=== PATIENT | female | born 1955 | race African-American/Black ===

== ENCOUNTER 2019-10-30 16:50 | Emergency (ER) | payer OTHER, SELFPAY ==
[2019-10-30 17:10] VITALS: BP 174/104; PULSE 94; RESP 16; TEMP 36.7; O2SAT 99
--- NOTE | 2019-10-30 17:38 | ED.SKABFB ---
HPI - Skin/Abscess/Foreign Bdy General Chief complaint: Skin/Abscess/Foreign Body Stated complaint: rash Time Seen by Provider: 10/30/19 17:38 Source: patient Mode of arrival: ambulatory Limitations: other (bilateral knee replacements on September 28) History of Present Illness HPI narrative: 64 year old female who presents to [facility] care with complaints of 3 week duration of rash to perineal area and buttocks. Patient just recently on 09/29/19 had bilateral knee replacements and is recuperating from surgery. Patient states that rash is itchy and also irritating with some blood noted from rash. patient states that she has tried A& D ointment and has applied Desitin ointment with no improvement. Rash noted to be red and excoriated in areas on buttock with some peeling of skin noted in perineal area and is itchy. Patient denies any recent fevers chills or sweats. She is taking pain medication for post operative pain management, denies any recent diarrhea or any pain or burning with urination. MD complaint: rash Onset (ago): week(s) (3) Location: buttocks (perineal area) Severity: moderate Severity scale (1-10): 4 Quality: pruritic Pain Consistency: constant Relieving factors: none Exacerbating factors: movement Context: recent antibiotic and other (recent surgery) Treatments prior to arrival: other (Desitin and A&D ointment) Related Data Home Medications Medication Instructions Recorded Confirmed apixaban [Eliquis] 2.5 mg PO BID 10/30/19 10/30/19 ascorbic acid (vitamin C) 500 mg PO BID 10/30/19 10/30/19 atorvastatin [Lipitor] 80 mg PO DAILY 10/30/19 10/30/19 calcium carbonate-vitamin D3 1 cap PO DAILY 10/30/19 10/30/19 celecoxib [Celebrex] 400 mg PO DAILY 10/30/19 10/30/19 ferrous sulfate 1 mg PO DAILY 10/30/19 10/30/19 hydrochlorothiazide 25 mg PO DAILY 10/30/19 10/30/19 insulin glargine [Basaglar KwikPen 45 unit SUBCUT DAILY 10/30/19 10/30/19 U-100 Insulin] lisinopril [Zestril] 40 mg PO DAILY 10/30/19 10/30/19 metformin [Glucophage] 2,000 mg PO DAILY 10/30/19 10/30/19 minocycline 100 mg PO DAILY 10/30/19 10/30/19 oxycodone-acetaminophen 1 - 2 tablet PO Q4-6H 10/30/19 10/30/19 Allergies Allergy/AdvReac Type Severity Reaction Status Date / Time No Known Allergies Allergy Verified 10/30/19 17:24 Review of Systems Review of Systems: Narrative: CONSTITUTIONAL: Denies fever, chills, or sweats. EYES: Denies visual changes, redness, or discharge. ENT: Denies rhinorrhea, congestion, sore throat, or otalgia. CARDIOVASCULAR: Denies chest pain, palpitations, or edema. RESPIRATORY: Denies cough or dyspnea. GASTROINTESTINAL: Denies abdominal pain, nausea, vomiting, or diarrhea. GENITOURINARY: Denies dysuria or hematuria. SKIN: positive for rash and itching to buttock and perineal area MUSCULOSKELETAL: Denies back pain, positive bilateral knee pain from recent bilateral total knee surgery or myalgia. NEUROLOGIC: Denies headache, numbness, or weakness. PSYCHIATRIC: Denies anxiety or depression. All systems reviewed & are unremarkable except as noted in HPI and below PMFSH Past Medical History Medical History Arthritis Diabetes Falls Fibromyalgia HTN (hypertension) Syncope Surgical History Surgical History History of hysterectomy History of knee replacement, total bilateral Hx of hand surgery right Social History Social History (Updated 11/03/19 @ 09:14 by Renee Conley NP) Smoking status: Never smoker Second hand tobacco smoke exposure: No Substance use: never Living arrangements: with family Gender identity (if verbalized by the patient): Female Comments At time of signature, agree with nursing past medical, surgical, social history. There is no relevant family history pertinent to the presenting complaint Exam Narrative: Exam Narrative: GENERAL: Well-appearing, well-nourished, and in no a
[2019-10-30 17:58] VITALS: BP 119/84; PULSE 99
== END 2019-10-30 17:58 | disposition home or self-care (01) ==
PROVIDERS: Emergency Provider Registered Nurse; PCP Physician Assistant
DX: R21 Rash and other nonspecific skin eruption (principal); B37.2 Candidiasis of skin and nail; M19.90 Unspecified osteoarthritis, unspecified site; E11.9 Type 2 diabetes mellitus without complications; M79.7 Fibromyalgia; I10 Essential (primary) hypertension; Z96.653 Presence of artificial knee joint, bilateral
CPT/HCPCS: 99213; G0463

== ENCOUNTER 2020-03-21 21:35 | Emergency (ER) | payer OTHER, SELFPAY ==
--- NOTE | ~2020-03-21 | CT_ITS ---
EXAMINATION: CT abdomen pelvis w con DATE: 03/21/2020 23:02 INDICATION: Right lower quadrant abdominal pain TECHNIQUE: Computed tomography (CT) of the abdomen and pelvis was performed with 100 cc Omnipaque 350 intravenous contrast. Automated exposure control and iterative reconstruction technique were employe d. Exam dose: 925.13 mGy-cm total exam DLP. COMPARISON: None. FINDINGS: There is discoid atelectasis and/or scarring in the lower lung zones. Normal heart size. No pericardial or pleural effusion. The liver, gallbladder, bile ducts and spleen are unremarkable. There are multiple pancreatic calcifications including a couple at the pancreatic neck, measuring up to 2.2 x 6.2 mm approximate maximal dimension. Several small punctate calcifications of the pancreati c body are suggested. Another small calcification is noted near the junction of the pancreatic head a nd uncinate process. Findings suggest chronic pancreatitis. 1.4 cm left adrenal low-attenuation mass, likely a small left adrenal adenoma. No right adrenal mass lesion is evident. No renal mass lesion or urinary tract calculus or hydroureteronephrosis is evident. The urinary bladd er is evacuated and not optimally evaluated as a result. Status post hysterectomy. Normal caliber and calcification of the abdominal aorta and iliac arteries. No intraperitoneal or ret roperitoneal or pelvic mass lesion or adenopathy or ascites is evident. Normal appendix. Diverticulosis of sigmoid colon; no CT evidence of diverticulitis. No bowel obstruction, bowel wall t hickening, pneumatosis or intraperitoneal free air. Very small fat-containing umbilical hernia. There is moderately severe degenerative disc disease at L3-4. There is grade 1 anterolisthesis at L4-5 due to degenerative change at the facet joints. Degenerative spurring of the lower thoracic spine. No suspicious osteolytic or osteoblastic lesions are noted. IMPRESSION: Calcifications consistent with chronic pancreatitis Probable 1.4 cm left adrenal adenoma Status post hysterectomy Normal appendix Diverticulosis of the sigmoid colon; no CT evidence of diverticulitis Reviewed, dictated and finalized at [facility]. Reviewed, dictated and finalized at [facility]. NOPATHOLOGIST
[2020-03-21 21:46] VITALS: BP 140/88; PULSE 102; RESP 18; TEMP 37; O2SAT 100
[2020-03-21 21:59] LABS: Basophils Absolute Auto 0.1 K/mm3 (0.0-0.1); Basophils Percent Auto 0.8 % (0.2-1.2); Eosinophils Absolute Auto 0.1 K/mm3 (0-0.3); Eosinophils Percent Auto 1.2 % (0-4.4); Hematocrit 44.3 % (37.0-47.0); Hemoglobin 14.8 g/dL (12.0-15.0); Immature Granulocyte Absolute 0.03 K/mm3 (0.00-0.031); Immature Granulocyte Percent A 0.3 % (0-0.5); Lymphocytes Absolute Auto 4.19 K/mm3 (0.9-3.2); Lymphocytes Percent Auto 47.3 % (18.3-44.2); Mean Corpuscular HGB Conc 33.4 g/dl (32-36); Mean Corpuscular Hemoglobin 32.5 pg (26-34); Mean Corpuscular Volume 97.4 fl (80-100); Mean Platelet Volume 8.4 fl (7.4-10.4); Monocytes Absolute Auto 0.7 K/mm3 (0.1-0.6); Monocytes Percent Auto 7.9 % (2.6-8.5); Neutrophils Absolute Auto 3.8 K/mm3 (1.3-6.7); Neutrophils Percent Auto 42.5 % (45.5-73.1); Platelet Count Result 419 k/mm3 (150-375); Red Blood Count 4.55 M/mm3 (4.2-5.4); Red Cell Distribution Width 14.8 % (11.5-14.5); White Blood Count 8.9 K/mm3 (4.5-10.0)
[2020-03-21 22:08] LABS: Alanine Aminotransferase 31 U/L (4-35); Albumin Level 4.6 g/dL (3.5-5.1); Alkaline Phosphatase 85 U/L (38-126); Anion Gap 13 mmol/L (8-16); Aspartate Amino Transferase 35 U/L (14-36); Bilirubin,Total 0.9 mg/dL (0.2-1.3); Blood Urea Nitrogen 17 mg/dL (7-17); Calcium 10.2 mg/dL (8.4-10.2); Carbon Dioxide 23 mmol/L (22-30); Chloride 103 mmol/L (98-107); Estimated Glomerular Filt Rate > 60; Glucose 163 mg/dL (65-105); Lipase 75 U/L (23-300); Sodium 139 mmol/L (137-145)
--- NOTE | 2020-03-21 22:26 | ED.GENADULT ---
HPI - General Adult General Chief complaint: Urogenital-Female Stated complaint: RL abd/lower back pain Time Seen by Provider: 03/21/20 22:09 History of Present Illness HPI narrative: Patient 64-year-old female who presents the emergency department with chief complaint of right lower quadrant pain. The patient states that she has been having pain for the last 4 days and has thought that she had a urinary tract infection. The patient has been attempting to self medicate with hydration Azo and cranberry. The patient states that she started having pain in the right flank and right lower quadrant and today the pain did not get any better and stated was worse with movement and palpation. Patient went to urgent care and they recommended the patient come to the emergency department to evaluate for possible kidney stone. Related Data Home Medications Medication Instructions Recorded Confirmed apixaban [Eliquis] 2.5 mg PO BID 10/30/19 10/30/19 ascorbic acid (vitamin C) 500 mg PO BID 10/30/19 10/30/19 atorvastatin [Lipitor] 80 mg PO DAILY 10/30/19 10/30/19 calcium carbonate-vitamin D3 1 cap PO DAILY 10/30/19 10/30/19 celecoxib [Celebrex] 400 mg PO DAILY 10/30/19 10/30/19 ferrous sulfate 1 mg PO DAILY 10/30/19 10/30/19 hydrochlorothiazide 25 mg PO DAILY 10/30/19 10/30/19 insulin glargine [Basaglar KwikPen 45 unit SUBCUT DAILY 10/30/19 10/30/19 U-100 Insulin] lisinopril [Zestril] 40 mg PO DAILY 10/30/19 10/30/19 metformin [Glucophage] 2,000 mg PO DAILY 10/30/19 10/30/19 minocycline 100 mg PO DAILY 10/30/19 10/30/19 oxycodone-acetaminophen 1 - 2 tablet PO Q4-6H 10/30/19 10/30/19 Allergies Allergy/AdvReac Type Severity Reaction Status Date / Time No Known Allergies Allergy Verified 03/21/20 21:36 Review of Systems Review of Systems: Narrative: A 10 system review of systems was completed on the patient and is negative except for what is stated in the HPI. Nursing and ancillary documentation was reviewed. [facility] Past Medical History Medical History (Updated 03/22/20 @ 00:24 by Zana Flores MD) Arthritis Diabetes Falls Fibromyalgia HTN (hypertension) Syncope Surgical History Surgical History History of hysterectomy History of knee replacement, total bilateral Hx of hand surgery right Social History Social History Smoking status: Never smoker Second hand tobacco smoke exposure: No Substance use: never Gender identity (if verbalized by the patient): Female Exam Narrative: Exam Narrative: GENERAL: Well-appearing, well-nourished, and in no acute distress. HEAD: Normocephalic, atraumatic. EYES: PERRLA and EOMI. ENT: Nares clear, no rhinorrhea or epistaxis. Mucous membranes moist. NECK: Supple. CHEST: Clear to auscultation. No respiratory distress. HEART: Regular rate and rhythm. No murmur heard. Normal peripheral pulses. ABDOMEN: Soft, tender to palpation in the right lower quadrant, nondistended, normal active bowel sounds. EXTREMITIES: Normal range of motion. No edema. SKIN: Warm, dry, no rash. NEURO: No focal deficits. Alert and oriented x3. PSYCH: Normal mood and affect. Course Course Emergency Course: CT scan shows evidence of chronic pancreatitis and diverticulosis without diverticulitis the appendix was visualized and was normal there is no evidence of hydronephrosis or evidence of obstructing ureteral lithiasis. Laboratory studies are within normal limits lipase was normal urinalysis showed no evidence of UTI. Vital Signs Vital signs: Vital Signs Temperature 37.0 C 03/21/20 21:46 Pulse Rate 102 H 03/21/20 21:46 Respiratory Rate 18 03/21/20 21:46 Blood Pressure 140/88 03/21/20 21:46 Pulse Oximetry 100 03/21/20 21:46 Temperature 37.0 C 03/21/20 21:46 Pulse Rate 102 H 03/21/20 21:46 Respiratory Rate 18 03/21/20 21:46 Blood Pressu
[2020-03-21 22:30] VITALS: BP 137/87; PULSE 88; RESP 20; O2SAT 99
[2020-03-21] MEDS: MORPHINE SULFATE (*CRX) 4 MG/ML INJ IV PUSH (22:39)
[2020-03-21] MEDS: ONDANSETRON INJ 4 MG/2 ML VIAL IV PUSH (22:39)
[2020-03-21] MEDS: SODIUM CHLORIDE 0.9% IV 1,000 ML 999 ML IV CONT (22:39)
[2020-03-21] MEDS: HYDROmorphone HCL INJ (*CRX) 1 MG/ML SYR IV PUSH (23:31)
[2020-03-21 23:37] LABS: Add Urine Microscopic? YES; Appearance Urine Clear (Clear); Bacteria Urine Trace /hpf; Bilirubin Urine Negative (Negative); Blood Urine Negative (Negative); Calcium Oxalate Crystals Urine Many /hpf; Color Urine Yellow (Yellow); Glucose Urine UA Negative (Negative); Ketones Urine Trace mg/dL (Negative); Leukocyte Esterase Ur Negative LEU/UL (Negative); Mucus Urine Few /lpf; Nitrate Urine Negative (Negative); Protein Urine 1+ mg/dL (Negative); RBC Urine 0-2 /hpf (0-2); Squamous Epithelial Cell Urine Few /hpf (Few); WBC Urine 0-3 /hpf
[2020-03-21 23:38] LABS: Specific Grav Ur 1.035 (1.001-1.035)
[2020-03-22 00:35] VITALS: BP 131/82; PULSE 90; RESP 17; O2SAT 98
== END 2020-03-22 00:35 | disposition home or self-care (01) ==
PROVIDERS: Emergency Provider Emergency Medicine; PCP Physician Assistant
DX: R10.31 Right lower quadrant pain (principal); M19.90 Unspecified osteoarthritis, unspecified site; E11.9 Type 2 diabetes mellitus without complications; M79.7 Fibromyalgia; I10 Essential (primary) hypertension; Z96.653 Presence of artificial knee joint, bilateral; Z79.4 Long term (current) use of insulin; Z79.01 Long term (current) use of anticoagulants; K57.30 Diverticulosis of large intestine without perforation or abscess without bleeding; R93.5 Abnormal findings on diagnostic imaging of other abdominal regions, including retroperitoneum
CPT/HCPCS: 36415; 74177; 80053; 81001; 83690; 85025; 96361; 96374; 96375; 99284; J1170; J2270; J2405; J7030; Q9967

== ENCOUNTER 2020-04-13 13:35 | Outpatient (CLI) | payer OTHER, SELFPAY ==
--- NOTE | ~2020-04-13 | US_ITS ---
EXAMINATION: US right upper quadrant DATE: 04/13/2020 14:18 INDICATION: Right upper quadrant pain TECHNIQUE: Multiple grayscale and Doppler ultrasound images of the abdomen were obtained. COMPARISON: CT, 03/21/2020 FINDINGS: The head and body of the pancreas are normal. The pancreatic tail is obscured by bowel gas. The liver is normal with normal echogenicity and echotexture. No surface nodularity. Normal hepatope srinivasan flow in the main portal vein. The gallbladder is normal with no abnormal wall thickening, pericho lecystic fluid or stones. The normal common bile duct measures 5 mm. Sonographic Herrera sign is posit tressa. IMPRESSION: 1. Normal sonographic study of the gallbladder. Reviewed, dictated and finalized at location [facility]. RNATIONAL MARKETING COORDINATOR
== END 2020-04-13 13:36 | disposition home or self-care (01) ==
LOC: ANHIMG 13:38
PROVIDERS: PCP Physician Assistant; Visit Provider Physician Assistant
DX: R10.11 Right upper quadrant pain (principal)
CPT/HCPCS: 76705

== ENCOUNTER 2020-04-27 18:33 | Emergency (ER) | payer OTHER, SELFPAY ==
--- NOTE | ~2020-04-27 | CT_ITS ---
EXAMINATION: CT abdomen pelvis w con INDICATION: Right lower quadrant pain TECHNIQUE: Computed tomographic images of the abdomen and pelvis were obtained after the administrati on of 100 cc of Omnipaque 350 intravenous contrast. The dose-length product (DLP) was 1238.34 mGy-cm. Automated exposure control and iterative reconstruction technique were employed. COMPARISON: 03/21/2020 FINDINGS: The lung bases are clear. The heart size is normal. Calcified coronary artery atheroscleros is is noted. The liver, spleen, pancreas, gallbladder, and right adrenal gland are normal. There is a stable 1.3 cm mass of the left adrenal gland. The kidneys are unremarkable. No pathologically enlarg ed abdominal or pelvic lymph nodes are identified. There is calcified atherosclerosis of the aorta an d many of the other arteries. There is no free intraperitoneal gas or evidence of bowel obstruction. A large volume of colonic stool is present. The appendix is normal. IMPRESSION: 1. Constipation. 2. 1.3 cm left adrenal mass, likely adenoma. Consider follow-up adrenal protocol CT in 12 months. Reviewed, dictated and finalized at location [facility]. NT RELATIONSHIP CONSULTANT IMPRESSION: 1. Constipation. 2. 1.3 cm left adrenal mass, likely adenoma. Consider follow-up adrenal protoco l CT in 12 months.
[2020-04-27 19:34] VITALS: BP 133/73; PULSE 96; RESP 16; TEMP 36.5; O2SAT 99
[2020-04-27 19:49] LABS: Basophils Absolute Auto 0.1 K/mm3 (0.0-0.1); Eosinophils Absolute Auto 0.2 K/mm3 (0-0.3); Eosinophils Percent Auto 3.2 % (0-4.4); Hematocrit 41.9 % (37.0-47.0); Hemoglobin 14.2 g/dL (12.0-15.0); Immature Granulocyte Absolute 0.01 K/mm3 (0.00-0.031); Immature Granulocyte Percent A 0.1 % (0-0.5); Lymphocytes Absolute Auto 3.74 K/mm3 (0.9-3.2); Lymphocytes Percent Auto 52.2 % (18.3-44.2); Mean Corpuscular HGB Conc 33.9 g/dl (32-36); Mean Corpuscular Hemoglobin 32.7 pg (26-34); Mean Corpuscular Volume 96.5 fl (80-100); Mean Platelet Volume 8.4 fl (7.4-10.4); Monocytes Absolute Auto 0.5 K/mm3 (0.1-0.6); Monocytes Percent Auto 7.3 % (2.6-8.5); Neutrophils Absolute Auto 2.6 K/mm3 (1.3-6.7); Neutrophils Percent Auto 36.2 % (45.5-73.1); Platelet Count Result 379 k/mm3 (150-375); Red Blood Count 4.34 M/mm3 (4.2-5.4); Red Cell Distribution Width 12.7 % (11.5-14.5); White Blood Count 7.2 K/mm3 (4.5-10.0)
[2020-04-27 20:02] LABS: Alanine Aminotransferase 26 U/L (4-35); Albumin Level 4.5 g/dL (3.5-5.1); Alkaline Phosphatase 87 U/L (38-126); Anion Gap 7 mmol/L (8-16); Aspartate Amino Transferase 33 U/L (14-36); Bilirubin,Total 0.4 mg/dL (0.2-1.3); Blood Urea Nitrogen 16 mg/dL (7-17); Calcium 9.8 mg/dL (8.4-10.2); Carbon Dioxide 25 mmol/L (22-30); Chloride 108 mmol/L (98-107); Estimated Glomerular Filt Rate > 60; Glucose 155 mg/dL (65-105); Lipase 79 U/L (23-300); Potassium 3.8 mmol/L (3.4-5.0); Sodium 140 mmol/L (137-145)
[2020-04-27 21:14] LABS: Add Urine Microscopic? YES; Appearance Urine Clear (Clear); Bacteria Urine Trace /hpf; Bilirubin Urine Negative (Negative); Blood Urine Negative (Negative); Calcium Oxalate Crystals Urine Many /hpf; Color Urine Yellow (Yellow); Glucose Urine UA Negative (Negative); Ketones Urine Negative (Negative); Leukocyte Esterase Ur Negative LEU/UL (Negative); Mucus Urine Rare /lpf; Nitrate Urine Negative (Negative); Protein Urine Negative (Negative); RBC Urine 0-2 /hpf (0-2); Squamous Epithelial Cell Urine Moderate /hpf (Few); WBC Urine 0-3 /hpf
[2020-04-27 22:49] VITALS: BP 135/84; PULSE 88; RESP 14; O2SAT 98
--- NOTE | 2020-04-27 22:57 | ED.GENADULT ---
HPI - General Adult General Chief complaint: Abdominal Pain Stated complaint: right flank pain Time Seen by Provider: 04/27/20 22:16 History of Present Illness HPI narrative: Patient is a 64-year-old female who presents ER with lower abdominal pain. Right side. Radiates from her navel to her back. Associated with malodorous vaginal discharge that began over the last 2 days. Was seen a month ago without the abnormal discharge and CT scan was unremarkable. No urinary symptoms. Last sexual activity was in December 2019. No alleviating factors. Pain worse with movement and with palpation. It also increases in intensity sporadically. Related Data Home Medications Medication Instructions Recorded Confirmed apixaban [Eliquis] 2.5 mg PO BID 10/30/19 10/30/19 ascorbic acid (vitamin C) 500 mg PO BID 10/30/19 10/30/19 atorvastatin [Lipitor] 80 mg PO DAILY 10/30/19 10/30/19 calcium carbonate-vitamin D3 1 cap PO DAILY 10/30/19 10/30/19 celecoxib [Celebrex] 400 mg PO DAILY 10/30/19 10/30/19 ferrous sulfate 1 mg PO DAILY 10/30/19 10/30/19 hydrochlorothiazide 25 mg PO DAILY 10/30/19 10/30/19 insulin glargine [Basaglar KwikPen 45 unit SUBCUT DAILY 10/30/19 10/30/19 U-100 Insulin] lisinopril [Zestril] 40 mg PO DAILY 10/30/19 10/30/19 metformin [Glucophage] 2,000 mg PO DAILY 10/30/19 10/30/19 minocycline 100 mg PO DAILY 10/30/19 10/30/19 oxycodone-acetaminophen 1 - 2 tablet PO Q4-6H 10/30/19 10/30/19 Allergies Allergy/AdvReac Type Severity Reaction Status Date / Time No Known Allergies Allergy Verified 04/27/20 22:52 Review of Systems Review of Systems: All systems reviewed & are unremarkable except as noted in HPI and below Constitutional: Constitutional: Denies chills, Denies fever(s) and Denies weakness Gastrointestinal: Gastrointestinal: Reports abdominal pain, Denies constipation, Denies diarrhea, Denies nausea and Denies vomiting Genitourinary: Genitourinary: Denies abnormal vaginal bleeding, Denies nocturia, Denies dysuria, Reports pelvic pain, Denies flank pain and Reports vaginal discharge PMFSH Past Medical History Medical History (Updated 04/28/20 @ 00:38 by Nabeel Parsons MD) Arthritis Diabetes Falls Fibromyalgia HTN (hypertension) Syncope Surgical History Surgical History History of hysterectomy History of knee replacement, total bilateral Hx of hand surgery right Social History Social History Smoking status: Never smoker Second hand tobacco smoke exposure: No Substance use: never Gender identity (if verbalized by the patient): Female Exam Narrative: Exam Narrative: GENERAL: Well-appearing, well-nourished, and in no acute distress. HEAD: Normocephalic, atraumatic. CHEST: Clear to auscultation. No respiratory distress. HEART: Regular rate and rhythm. Normal peripheral pulses. ABDOMEN: Soft, right lower quadrant tenderness with guarding nondistended, normal active bowel sounds. : Normal external genitalia. Small to moderate amount of physiologic discharge that is not malodorous. EXTREMITIES: Normal range of motion. No edema. SKIN: Warm, dry, no rash. NEURO: Alert and oriented x3. Course Course Emergency Course: We will give metronidazole for potentially bacterial vaginosis. Also placed on stool softeners for constipation. Vital Signs Vital signs: Vital Signs Temperature 97.7 F 04/27/20 19:34 Pulse Rate 96 04/27/20 19:34 Respiratory Rate 16 04/27/20 19:34 Blood Pressure 133/73 04/27/20 19:34 Pulse Oximetry 99 04/27/20 19:34 Temperature 97.7 F 04/27/20 19:34 Pulse Rate 88 04/27/20 22:49 Respiratory Rate 14 04/27/20 22:49 Blood Pressure 135/84 04/27/20 22:49 Pulse Oximetry 98 04/27/20 22:49 Medical Decision Making Vital Signs Vital Signs: Vital Signs Temperature 97.7 F 04/27/20 19:34 Pulse Rate 96
[2020-04-27] MEDS: MORPHINE SULFATE (*CRX) 4 MG/ML INJ IV PUSH (23:03)
[2020-04-28 01:14] VITALS: BP 134/74; PULSE 84; RESP 16; O2SAT 99
== END 2020-04-28 01:16 | disposition home or self-care (01) ==
PROVIDERS: Emergency Provider Emergency Medicine; PCP Physician Assistant
DX: K59.00 Constipation, unspecified (principal); N76.0 Acute vaginitis; I10 Essential (primary) hypertension; Z96.653 Presence of artificial knee joint, bilateral; Z79.01 Long term (current) use of anticoagulants; Z79.4 Long term (current) use of insulin; E27.9 Disorder of adrenal gland, unspecified
CPT/HCPCS: 36415; 74177; 80053; 81001; 83690; 85025; 87070; 87491; 87591; 87808; 96374; 99284; J2270; Q9967

== ENCOUNTER 2021-06-22 14:07 | Emergency (ER) | payer MEDICARE, MEDICAID, SELFPAY ==
[2021-06-22 15:07] VITALS: BP 143/87; PULSE 103; RESP 21; TEMP 36.4; O2SAT 98
--- NOTE | 2021-06-22 16:06 | ED.UPPEXIN ---
HPI - Extremity Injury (Upper) General Chief Complaint: Extremity Injury, Upper Stated Complaint: right shoulder pain Time Seen by Provider: 06/22/21 15:52 Source: patient Mode of arrival: ambulatory Limitations: no limitations History of Present Illness HPI narrative: 66 y/o female presents to the ER today for right shoulder pain. She has a known problem in this shoulder with rotator cuff. She has been seeing ortho. She has had 3 steroid injections into the joint. Her last injection was on 05/15 and she has been having constant pain in her shoulder since then. She gets sharp shooting pains often in the joint. Her neck is starting to feel tight and sore. No fever or chills. No numbness or tingling in the hand. She has called her ortho. He has her on mobic which has not helped. She is scheduled on Saturday for follow up for this problem. Related Data Home Medications Medication Instructions Recorded Confirmed apixaban [Eliquis] 2.5 mg PO BID 10/30/19 10/30/19 ascorbic acid (vitamin C) 500 mg PO BID 10/30/19 10/30/19 atorvastatin [Lipitor] 80 mg PO DAILY 10/30/19 10/30/19 calcium carbonate-vitamin D3 1 cap PO DAILY 10/30/19 10/30/19 celecoxib [Celebrex] 400 mg PO DAILY 10/30/19 10/30/19 ferrous sulfate 1 mg PO DAILY 10/30/19 10/30/19 hydrochlorothiazide 25 mg PO DAILY 10/30/19 10/30/19 insulin glargine [Basaglar KwikPen 45 unit SUBCUT DAILY 10/30/19 10/30/19 U-100 Insulin] lisinopril [Zestril] 40 mg PO DAILY 10/30/19 10/30/19 metformin [Glucophage] 2,000 mg PO DAILY 10/30/19 10/30/19 minocycline 100 mg PO DAILY 10/30/19 10/30/19 oxycodone-acetaminophen 1 - 2 tablet PO Q4-6H 10/30/19 10/30/19 Allergies Allergy/AdvReac Type Severity Reaction Status Date / Time No Known Allergies Allergy Verified 06/22/21 15:41 Review of Systems Constitutional: Constitutional: Denies chills, Denies fatigue, Denies fever(s) and Denies weakness Eyes: Eyes: Reports no additional eye complaints ENT: Denies dysphagia, Denies epistaxis and Denies sore throat Respiratory: Respiratory: Denies chest congestion, Denies cough, Denies dyspnea and Denies wheezing Gastrointestinal: Gastrointestinal: Denies abdominal pain, Denies diarrhea, Denies nausea and Denies vomiting Genitourinary: Genitourinary: Reports no additional female genitourinary complaints Musculoskeletal: Musculoskeletal: Reports as per HPI Integumentary/Breasts: Skin/Breast: Reports system reviewed and no additional complaints, except as docu Neurologic: Reports system reviewed and no additional complaints, except as documented Psychiatric: Psychiatric: Reports no additional psychiatric complaints Endocrine: Endocrine: Reports no additional endocrine complaints PMFSH Past Medical History Medical History (Updated 06/22/21 @ 16:38 by Sona Hurst APRN) Arthritis Diabetes Falls Fibromyalgia HTN (hypertension) Syncope Surgical History Surgical History History of hysterectomy History of knee replacement, total bilateral Hx of hand surgery right Social History Social History Smoking status: Never smoker Second hand tobacco smoke exposure: No Substance use: never Gender identity (if verbalized by the patient): Female Exam Const: General: no acute distress Orientation/consciousness: patient oriented x3 HENMT: Head: normal to inspection Eyes: Conjunctivae: conjunctivae normal Neck: Neck: normal visual inspection Chest: Chest palpation & inspection: normal inspection of the chest Resp: Effort & Inspection: normal respiratory effort Auscultation: clear to auscultation bilaterally Cardio: Rate: regular rate Rhythm: regular rhythm GI: GI Palp: Yes Soft to palpation, No Tenderness to palpation present (GI) and No Guarding due to palpation present (GI) : General: Yes no CVA tenderness Skin: General skin exam: normal c
[2021-06-22] MEDS: CYCLOBENZAPRINE HCL 10 MG TABLET PO (16:17)
[2021-06-22] MEDS: TRIAMCINOLONE ACET INJ 40 MG/ML VIAL IM (16:17)
[2021-06-22] MEDS: HYDROcodone/acetaminophen (*CRX) 7.5-325 MG TABLET 1 TAB PO (16:17)
[2021-06-22 16:46] VITALS: RESP 16; O2SAT 98
== END 2021-06-22 16:47 | disposition home or self-care (01) ==
PROVIDERS: Emergency Provider Nurse Practitioner Family; PCP Physician Assistant
DX: M25.511 Pain in right shoulder (principal); E11.9 Type 2 diabetes mellitus without complications; I10 Essential (primary) hypertension; M19.90 Unspecified osteoarthritis, unspecified site; M79.7 Fibromyalgia; Z96.653 Presence of artificial knee joint, bilateral; Z79.4 Long term (current) use of insulin; Z79.84 Long term (current) use of oral hypoglycemic drugs; Z79.01 Long term (current) use of anticoagulants
CPT/HCPCS: 96372; 99283; A9270; J3301

== ENCOUNTER 2021-11-09 10:52 | Outpatient (RCR) | payer MEDICARE, MEDICAID, SELFPAY | END 2022-01-29 11:15 | disposition home or self-care (01) | LOC: ANHDMC 10:52 | PROVIDERS: PCP Physician Assistant; Visit Provider Physician Assistant | DX: E11.9 Type 2 diabetes mellitus without complications (principal); Z71.89 Other specified counseling | CPT/HCPCS: G0108 ==

== ENCOUNTER → 2022-05-22 14:58 | Outpatient (CLI) | payer MEDICARE, MEDICAID, SELFPAY ==
--- NOTE | ~2022-05-22 | DEXA_ITS ---
Bone Density Report Name: MAXIMINO FISHER Age: 67 Sex: Female Ethnicity: Black Date of : 1955 Indication: postmenopausal; screening for osteoporosis; height loss; hysterectomy; secondary osteoporosis; Referring Provider: BEV, ELIJAH Study: Bone densitometry was performed. Exam Date: May 22, 2022 Accession number: [id number] Bone Density: Region BMD T-score Z-score Classification AP Spine (L1, L2) 0.797 -1.7 -0.6 Osteopenia Femoral Neck (Left) 0.705 -1.3 -0.4 Osteopenia Total Hip (Left) 0.857 -0.7 -0.1 Normal Femoral Neck (Right) 0.734 -1.0 -0.2 Normal Total Hip (Right) 0.839 -0.8 -0.2 Normal Total Hip Mean 0.848 -0.8 -0.2 Normal World Health Organization criteria for BMD impression classify patients as: Normal (T-score at or above -1.0), Osteopenia (T-score between -1.0 and -2.5), or Osteoporosis (T-score at or below -2.5). 10-year Fracture Risk(1): Major Osteoporotic Fracture 3.8% Hip Fracture 0.3% Reported Risk Factors: [place] (Black), Neck BMD=0.705, BMI=30.4, secondary osteoporosis (1) FRAX(R) Version 3.08. Fracture probability calculated for an untreated patient. Fracture probability may be lower if the patient has received treatment. Clinical Information Provided by Patient: Has secondary osteoporosis Has used the following medications: HRT (i.e. estrogen/hormone therapy), Vitamin D, Calcium Has the following medical conditions: Hysterectomy Patient maximum height was 65 Menopause Age: 42 No regular weight bearing exercise Does not regularly consume dairy products Drinks caffeinated beverages Onset of menses at age 10 Number of children 3 Impression: The patient has low bone mass, based on the Total Spine T-score. The patient has an estimated ten-year risk of hip fracture of 0.3% and an estimated ten-year risk of major fracture of 3.8%, based on the WHO FRAX algorithm. Discussion: BONE DENSITY IS LOW AT ONE OR MORE SKELETAL SITES. This patient's lowest T-score is low at one or more skeletal sites. It meets the World Health Organization's (WHO) criteria for ?low bone mass? (T-score between -1.0 and -2.5). The patient's 10-year risk of fracture as calculated by FRAX is less than the threshold where pharmacological therapy is recommended by the National Osteoporosis Foundation (NOF). However, all treatment decisions require clinical judgment and consideration of individual patient factors, including patient preferences, comorbidities, previous drug use, risk factors not captured in the FRAX model (e.g., frailty, falls, vitamin D deficiency, increased bone turnover, interval significant decline in bone density) and possible under or overestimation of fracture risk by FRAX. The patient should follow a healthful lifestyle (good nutrition with adequate calcium and vitamin D, and ap
== END ==
PROVIDERS: PCP Physician Assistant; Visit Provider Physician Assistant
DX: M81.0 Age-related osteoporosis without current pathological fracture (principal); M85.88 Other specified disorders of bone density and structure, other site; M85.852 Other specified disorders of bone density and structure, left thigh
CPT/HCPCS: 77080

== ENCOUNTER 2023-01-03 17:27 | Emergency (ER) | payer OTHER, SELFPAY ==
--- NOTE | 2023-01-03 17:38 | ED.FEMALEGU ---
HPI - Female Genitourinary General Chief complaint: Urogenital-Female Stated complaint: vaginal issue Time Seen by Provider: 01/03/23 17:40 Source: patient, RN notes reviewed and old records reviewed Mode of arrival: ambulatory Limitations: no limitations History of Present Illness HPI Narrative: 67-year-old female presents to the [facility] with complaints of and ?outbreak to her left labia that started 10 days ago. Denies any new sexual partners. Denies any urinary symptoms. States that she has not had a ?outbreak? in 20 years. Does states that she has been under lot more stress lately Denies any fevers. Denies any chances of an STD Related Data Home Medications Medication Instructions Recorded Confirmed apixaban 2.5 mg tablet (Eliquis) 2.5 mg PO BID 10/30/19 01/03/23 ascorbic acid (vitamin C) 500 mg 500 mg PO BID 10/30/19 01/03/23 tablet atorvastatin 80 mg tablet (Lipitor) 80 mg PO DAILY 10/30/19 01/03/23 calcium carbonate 600 mg-vitamin 1 cap PO DAILY 10/30/19 01/03/23 D3 25 mcg (1,000 unit) capsule celecoxib 200 mg capsule (Celebrex) 400 mg PO DAILY 10/30/19 01/03/23 ferrous sulfate 325 mg (65 mg 1 mg PO DAILY 10/30/19 01/03/23 iron) tablet hydrochlorothiazide 25 mg tablet 25 mg PO DAILY 10/30/19 01/03/23 insulin glargine 100 unit/mL (3 45 unit subcut DAILY 10/30/19 01/03/23 mL) subcutaneous pen (Basaglar KwikPen U-100 Insulin) lisinopril 40 mg tablet (Zestril) 40 mg PO DAILY 10/30/19 01/03/23 metformin 1,000 mg tablet 2,000 mg PO DAILY 10/30/19 01/03/23 (Glucophage) minocycline 100 mg capsule 100 mg PO DAILY 10/30/19 01/03/23 oxycodone-acetaminophen 5 mg-325 1 - 2 tablet PO Q4-6H 10/30/19 01/03/23 mg tablet Allergies Allergy/AdvReac Type Severity Reaction Status Date / Time No Known Allergies Allergy Verified 01/03/23 17:32 Review of Systems Review of Systems: All systems reviewed & are unremarkable except as noted in HPI and below Constitutional: Constitutional: Reports no additional constitutional complaints Eyes: Eyes: Reports no additional eye complaints ENT: Reports system reviewed and no additional complaints, except as documented Cardiovascular: Cardiovascular: Reports no additional cardiovascular complaints, Denies chest pain and Denies dyspnea Respiratory: Respiratory: Reports no additional respiratory complaints, Denies chest congestion, Denies cough and Denies dyspnea Gastrointestinal: Gastrointestinal: Reports no additional gastrointestinal complaints, Denies abdominal pain, Denies nausea and Denies vomiting Genitourinary: Genitourinary: Reports as per HPI Musculoskeletal: Musculoskeletal: Reports no additional musculoskeletal complaints Integumentary/Breasts: Skin/Breast: Reports system reviewed and no additional complaints, except as docu Neurologic: Reports system reviewed and no additional complaints, except as documented Psychiatric: Psychiatric: Reports no additional psychiatric complaints Allergic/Immunologic: Allergic/Immunologic: Reports no additional allergic/immunologic complaints PMFSH Past Medical History Medical History Arthritis Diabetes Falls Fibromyalgia HTN (hypertension) Syncope Surgical History Surgical History History of hysterectomy History of knee replacement, total bilateral Hx of hand surgery right Social History Social History Smoking status: Never smoker Second hand tobacco smoke exposure: No Substance use: never Living arrangements: with family Gender identity (if verbalized by the patient): Female Comments At the time of my signature, I reviewed and agree with the nursing past medical, surgical, social, and family history. There is no relevant family history pertinent to the patient complaint. Exam Const: General: cooperative, healthy appearin
[2023-01-03 17:39] VITALS: BP 144/82; PULSE 80; RESP 16; TEMP 36.3; O2SAT 99
[2023-01-03 17:57] LABS: Glucose Point of Care 247 mg/dl (65-105)
== END 2023-01-03 18:01 | disposition home or self-care (01) ==
PROVIDERS: Emergency Provider Nurse Practitioner; PCP Physician Assistant
DX: A60.04 Herpesviral vulvovaginitis (principal); E11.9 Type 2 diabetes mellitus without complications; Z79.84 Long term (current) use of oral hypoglycemic drugs; M19.90 Unspecified osteoarthritis, unspecified site; M79.7 Fibromyalgia; I10 Essential (primary) hypertension; Z96.653 Presence of artificial knee joint, bilateral
CPT/HCPCS: 82948; 99213; G0463